=== PATIENT | female | born 1980 ===

== ENCOUNTER → 2022-03-15 14:25 | Outpatient (CLI) | payer OTHER, SELFPAY ==
--- NOTE | 2022-03-16 08:31 | DIET.CONS ---
Dietary Consultation Note Visit on 03/15/22 Assessment: 41y F attending [address] consultation for chronic abdominal pain. Pt has pmhx depression, PTSD, and active bulimia. Pt reports current symptoms began in 2017 as diffuse, aching, 3-4/10 pain in upper abdomen, mostly right sided which wakes her frequently most nights. Pt has been to several providers to assess source of pain. Consult to GI with EGD showing areas of erosion, took PPI which didn't help. Diagnosed with congestive pelvic syndrome, possible endometriosis by BRAND MARKETING COORDINATOR, has hormonal implant x5mo without relief of sx. PCM recommended low fodmap diet, however pt not given directions on how to follow elimination diet so wasn't able to follow this advice. Pt endorses significant constipation which is worse with intake beans and gluten. Pt taking 300mg magnesium citrate daily to achieve one BM daily. Pt does endorse difficulty with hydration status. Pt taking variety of medications for mood: trintellix, prazosin, topiramate, hydroxyzine. Has some morning nausea with trintellix but feels stable on this med so wants to continue taking it, actively seeing therapist. Pt had gained significant weight with some medications, up to 154# which along with work and home life stress intensified her eating disorder with binge/purge as stress coping mechanism. Pts recently lost 45# on the ketogenic diet so pt has been exploring this as a weight loss option to try lose weight gained from medication side effects, pt feels some jealously that he can eat hamburger and delgado and lose so much weight. Pt active [employer], the stress of her job as well as living in a different state than her and two children for 4 years and hx being coxswain on crew team all aggravating factors for eating disorder. Pt identifies stress, shame, depression, overly hungry state, and a feeling of being over full as triggers to purging behaviors. Pt had been purging after each meal but currently only participates in these behaviors twice per week. Pt had not used diuretics or laxatives until starting mag citrate by PCM. Pt perseverates on full stomach until she purges, feels relieved, then feels intense shame for the behaviors. Pt secretive in these habits often looking for isolated bathrooms so no one hears her purge at work or at home. Pt desires healthy relationship with food, sharing family meals around a table, and a better understanding on long standing abd pain to hopefully resolve sx. Ht: 5'1 Wt: 129# BMI: 24.4 UBW: 118# up to 154# RD Impression: Pt interested in assessing possible nutrition related causes of chronic abdominal pain through nutrition assessment and trial of low FODMAP diet with thorough instruction. Pt desires to work through disordered eating behaviors to develop healthy relationship with food and an enriching family food routine. Pt is at action stage of change with both areas. Pt seeing therapist, on appropriate medications, and expresses motivation in the process. Plan is to trial low FODMAP diet x4 weeks followed by systematic reintroduction of foods to identify any food triggers for abd px and create the most food variety possible to avoid restrictive diet. Concerns with pt following ketogenic diet r/t disordered eating, low fiber content with hx constipation. In addition to identifying possible food triggers, we will work to optimize bowel patterns through attaining ideal fiber intake and fluid intake and improved relationship to food. Pt has never had colonoscopy which seems indicated to rule out endometriosis within GI system and to identify other manifestations of chronic constipation such as diverticulosis, internal hemorrhoids, etc. Nutrition Diagnosis: 1. chronic abdominal pain r/t unknown causes aeb pt with 5y near constant diffuse 3-4/10 upper abd pain mostly on right which wakes her at night. 2. disordered eating r/t undesirable coping mechanism for stress aeb pt with bulimia purging twice weekly, sometimes more, pt with dx depression and PTSD, pt reports purging to relieve work and life stress. Interventions: 1. Recommend diagnostic colonoscopy as pain pt describes is within anatomical region of large intestine, pt has never had colonoscopy, endometriosis in differential per medical team which can manifest in GI tissues, pt with chronic constipation. 2. Supportive counseling on disordered eating, helping pt to identify and question long held food rules and beauty standards. 3. Introduced pt to intuitive eating tool the hunger scale. Pt to avoid getting hungry to a 1-2 or full to a 9-10 as these regions often trigger intense desire to binge/purge in susceptible individuals. Pt will work with scale to help regulate meal timing and volume. 4. Educated pt on low FODMAP diet protocol with supportive handouts and directions including meal ideas and shopping lists. Plan for pt to follow x4w then start reintroducing one food at a time q3d to assess for tolerance. Monitoring/Evaluations: f/u in 2w to continue supportive counseling and nutrition education. Electronically Signed by: Nicolasa Green 03/15/22 17:31 Clinical Dietitian [address] [address]
== END ==
PROVIDERS: Visit Provider Student in an Organized Health Care Education/Training Program
DX: G89.29 Other chronic pain (principal); R10.9 Unspecified abdominal pain; F50.2 Bulimia nervosa; Z71.3 Dietary counseling and surveillance; Z68.24 Body mass index [BMI] 24.0-24.9, adult
CPT/HCPCS: 97802

== ENCOUNTER → 2022-03-28 13:55 | Outpatient (CLI) | payer OTHER, SELFPAY ==
--- NOTE | 2022-03-29 14:24 | DIET.OUTPTC ---
Dietary Outpatient Consultation Note Consultation Date: 03/29/2022 41[address] attending RD f/u for unspecified abdominal pain and bulimia. Pt reports B+ grade of herself regarding following low FODMAP diet, no reported improvements in abdominal pain yet. Area pt pointing to for pain in line with transverse colon. Pt with chronic constipation and magnesium citrate use. Pt states not uncommon to have rabbit pellet like BMs, endorses not being very good about liquid consumption, tries to drink [place] fizzy water and miso soup. Pt has had a few purges since last visit, but much fewer than prior to our meetings. Pt using hunger scale and finding it quite useful in avoiding being very hungry or getting overfilled, both sensations spur binge/purge cycles. Pt had one occasion she thought she was a 4, however, once she saw menu she was 3 then when food came she very quickly consumed entire plate along with items off of her children's plates. She spent 4h perseveration on purging but did not. Pt ended up purging on one occasion she quickly ate 4 pieces of pizza. Pt reports when this happens she almost goes outside of her body during the eating phase and gets much relief out of removing the food from her stomach later even though she does feel ashamed. 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 Pt desires to change this habit. Feels she understands logically, but somewhere deep inside she feels this habit works to relieve stress and keep her at controlled weight. Pt moving down to 10mg Trintillex medication as it causes her moderate level nausea most of the day with several occasions of spontaneous emesis over the past 2w. Pt states this not helpful for her abd px nor bulimia. Recc pt request zofran Rx from PCM to help with nausea, literature states can be helpful if taken 30min prior to meds. Pt meeting c DIGITAL COMPOSER regarding potential of endometriosis dx, has PCM meeting on Apr 04 to request GI consult for colonoscopy. Nutrition Diagnosis: 1. chronic abdominal pain r/t unknown causes aeb pt with 5y near constant diffuse 3-4/10 upper abd pain mostly on right which wakes her at night. 2. disordered eating r/t undesirable coping mechanism for stress aeb pt with bulimia purging twice weekly, sometimes more, pt with dx depression and PTSD, pt reports purging to relieve work and life stress. Interventions: 1. Reinforced pts good compliance with low FODMAP diet to test for food triggers to current GI sx. Pt will continue to follow for 2 more weeks to test for efficacy. 2. Reinforced pts good mindfulness around hunger and fullness since last session and starting to understand binge/purge triggers. Reiterated it takes time to substitute alternate coping mechanisms for stress. Pt will work on staying mindful while eating, especially if finding herself in a binge situation. Pt to more closely analyze her relationship to hunger as she may be misidentifying her hunger as a 4 when it actually is stronger. Goals include increased mindfulness and flexibility around food, adequate nutrition intake and meal timing, joyful meals with family, constructive coping mechanisms, reevaluating food/body image rules, identifying source of abd px and treating sx. f/u in 1w to continue supportive counseling and nutrition education. Electronically Signed by: Nicolasa Green 03/28/22 14:24 Clinical [address] [address]
== END ==
PROVIDERS: Referring Provider Student in an Organized Health Care Education/Training Program; Visit Provider Student in an Organized Health Care Education/Training Program
DX: F50.2 Bulimia nervosa (principal); R10.9 Unspecified abdominal pain; Z71.3 Dietary counseling and surveillance
CPT/HCPCS: 97803

== ENCOUNTER → 2022-04-04 13:23 | Outpatient (CLI) | payer OTHER, SELFPAY ==
--- NOTE | 2022-04-04 13:26 | DIET.OUTPTC ---
Dietary Outpatient Consultation Note Consultation Date: 04/04/2022 41[address] F attending RD f/u for abdominal pain and disordered eating. Pt continuing low FODMAP diet which has not decreased her abd pain, however, pt has not been taking magnesium for bowel regimen and is having nearly regular stools daily. Pt starting reintroduction phase of diet. Instructed pt on making list of 10 foods and reintroducing one every three days ensuring she eats full serving of each during that time to assess for tolerance. Pt will start with cottage cheese. Pt using mindful eating techniques which she states is helping with her disordered eating. Pt finding she easily overlooks her hunger when she gets busy or stressed which leads to very fast eating, poor food choices, and overeating which often causes desire to purge and self-shaming. Pt had good day Sunday food er[place]. Was in [place] with family shopping. She had coffee for breakfast, chicken lettuce wrap for lunch at 11:30am, smoothie at 2pm and felt good energy with no desire to purge. Pt then got busy readying her kids for school so missed dinner and did not want to eat past 9pm. Pt expressed plan for times like this: pt will have deli salad in fridge or [employer] entree in freezer for quick meal. Pt starting new telework job tomorrow. Is interested in support around stable eating pattern once she gets an understanding of job duties. Reinforced pts good efforts at mindful eating and getting to the reintroduction phase of FODMAPs. Pt has laprascopic exploration for endometriosis scheduled in April and referral to GI for colonoscopy date TBD. BELLO f/u in 2w to continue supportive eating counseling and guidance with FODMAP reintroduction. Electronically Signed by: Nicolasa Green 04/04/22 13:26 Clinical Dietitian [id number] [place] [address]
== END ==
PROVIDERS: Visit Provider Student in an Organized Health Care Education/Training Program
DX: F50.9 Eating disorder, unspecified (principal); R10.9 Unspecified abdominal pain; Z71.3 Dietary counseling and surveillance
CPT/HCPCS: 97803

== ENCOUNTER → 2022-04-20 16:20 | Outpatient (CLI) | payer OTHER, SELFPAY ==
--- NOTE | 2022-04-20 17:51 | DIET.OUTPTC ---
Dietary Outpatient Consultation Note Consultation Date: 04/20/20[address] 41[address] RD f/u for help with abd pain and disordered eating. Pt reintroduced cottage cheese to diet, noticing she is waking with anxiety from 1-3am. Pt unclear if this is food related or related to stress of acute life changes. Pt will remove cottage cheese from diet for now and let life settle in April before reintroducing again. Pt found potato chips and gluten as triggers for desire to purge. Pt will keep these out of diet for now until officially retires in 8d. Pt shares her kids are picky eaters which causes stress at meal times. Pt has goal of sharing joyful meals c family but unclear about what everyone can share at the table. Pt not noticing improvement in abd sx, however, pt had 2 BMs today and 1 BM most days without use of magnesium citrate, pt focusing on hydration. Pt has had some binge/purge since last visit but under considerable stress right now. Pt continues to lose sight of hunger when stressed or busy. Interventions: 1. Agree c pt to keep diet stable until snf and insurance change. 2. [facility] pt enroll her daughter in S[employer] Feeding Therapy at with Nadeem Crowder to help with picky eating. Pts son may benefit from seeing his sister being brave with food. Change in this aspect of family meals will benefit pt and her goal of family meals. 3. Reinforced pts focus on hydration with improved bowel fxn despite stubborn abd px. 4. Reinforced pt has strong neural connection with binge/purge and stress relief, will not dissapear overnight. Reinforced pts mindfulness and processing of instances she participates in these behaviors. F/u in 3w to continue supportive nutrition therapy. Increase awareness of hunger identification when busy or stressed to support stable eating habits. Electronically Signed by: Nicolasa Green 04/20/22 17:51 Clinical Dietitian [address] [place] [address]
== END ==
PROVIDERS: Visit Provider Student in an Organized Health Care Education/Training Program
DX: R10.9 Unspecified abdominal pain (principal); F50.9 Eating disorder, unspecified; Z71.3 Dietary counseling and surveillance
CPT/HCPCS: 97803

== ENCOUNTER → 2023-09-14 07:42 | Outpatient (CLI) | payer OTHER, SELFPAY ==
--- NOTE | 2023-09-14 07:43 | DI.MG.S_ITS ---
BILATERAL DIGITAL SCREENING MAMMOGRAM 3D/2D WITH CAD: 09/14/2023 CLINICAL: Baseline exam. Routine screening. No prior exams were available for comparison. Both breasts are heterogeneously dense, which may obscure small masses (category c / 51-75% glandular tissue). Current study was also evaluated with a Computer Aided Detection (CAD) system. There is a 1.9 cm oval equal density focal asymmetry with an obscured margin in the left breast at 3 o'clock middle depth. No other significant masses, calcifications, or other findings are seen in either breast. IMPRESSION: INCOMPLETE: NEEDS ADDITIONAL IMAGING EVALUATION The 1.9 cm oval equal density focal asymmetry in the left breast resembles a cyst and is indeterminate. Additional views with possible ultrasound are recommended. Based on the Tyrer Cuzick model (a risk assessment model) the patient's lifetime risk is 14.3% and her 10 year risk is 2.5%. According to the ACR, ACS, and NCCN guidelines, an annual breast MRI exam along with mammogram is recommended if the patient's lifetime risk is 20% or greater. This exam was interpreted at Station ID: [id number]. NOTE: For mammograms, a report in lay terms will be sent to the patient. Approximately 15% of breast malignancies will not be visualized mammographically. In the management of a palpable breast mass, a negative mammogram must not discourage biopsy of a clinically suspicious lesion. Electronically Signed By: Marty Torres M.D. aty/:09/14/2023 10:01:33 letter sent: Additional Imaging Needed ACR BI-RADS Category 0: Incomplete [id number]
== END ==
LOC: MAMMO 07:42
PROVIDERS: PCP Family Medicine; Referring Provider Family Medicine; Visit Provider Family Medicine
DX: Z12.31 Encounter for screening mammogram for malignant neoplasm of breast (principal); R92.333 Mammographic heterogeneous density, bilateral breasts
CPT/HCPCS: 77063; 77067

== ENCOUNTER → 2023-10-12 09:26 | Outpatient (CLI) | payer OTHER, SELFPAY ==
--- NOTE | 2023-10-12 | DI.MG.S_ITS ---
UNILATERAL LEFT DIGITAL DIAGNOSTIC MAMMOGRAM 3D/2D WITH ADDITIONAL VIEWS: 10/12/2023 CLINICAL: Additional evaluation requested from prior study. Comparison is made to exam dated: 09/14/2023 mammogram - [facility]. The left breast is heterogeneously dense, which may obscure small masses (category c / 51-75% glandular tissue). There is a 1.9 cm oval focal asymmetry in the left breast at 3 o'clock middle depth. This is seen in additional views. No other significant masses or calcifications are seen in the breast. IMPRESSION: INCOMPLETE: NEEDS ADDITIONAL IMAGING EVALUATION The 1.9 cm oval focal asymmetry in the left breast resembles a cyst and is indeterminate. A targeted ultrasound of the left breast is recommended and will be performed immediately following this exam. Based on the Tyrer Cuzick model (a risk assessment model) the patient's lifetime risk is 14.3% and her 10 year risk is 2.6%. According to the ACR, ACS, and NCCN guidelines, an annual breast MRI exam along with mammogram is recommended if the patient's lifetime risk is 20% or greater. This exam was interpreted at Station ID: [id number]. NOTE: For mammograms, a report in lay terms will be sent to the patient. Approximately 15% of breast malignancies will not be visualized mammographically. In the management of a palpable breast mass, a negative mammogram must not discourage biopsy of a clinically suspicious lesion. Electronically Signed By: Dominique Thompson M.D. lk/:10/12/2023 09:57:03 ACR BI-RADS Category 0: Incomplete [id number]
--- NOTE | 2023-10-12 09:28 | DI.US.S_ITS ---
LIMITED ULTRASOUND OF LEFT BREAST: 10/12/2023 CLINICAL: Patient returns today to evaluate a focal asymmetry in the left breast. Comparison is made to exams dated: 10/12/2023 mammogram and 09/14/2023 mammogram - [facility]. Color flow and real-time ultrasound of the left breast 3 o'clock region were performed on the areas of interest. Ley scale images of the real-time examination were reviewed. There is a 2 cm x 1.8 cm x 3 cm simple cyst in the left breast at 3 o'clock middle depth. This simple cyst is anechoic. This correlates with mammography findings. Color flow imaging demonstrates that there is no vascularity present. IMPRESSION: BENIGN There is no sonographic evidence of malignancy. The 2 cm x 1.8 cm x 3 cm simple cyst in the left breast is benign. Return to annual mammogram screening schedule is recommended. This exam was interpreted at Station ID: [id number]. Electronically Signed By: Dominique Thompson M.D. lk/:10/12/2023 10:31:12 letter sent: Normal Exam Ultrasound BI-RADS: 2 Benign
== END ==
LOC: MAMMO 09:27
PROVIDERS: PCP Family Medicine; Referring Provider Family Medicine; Visit Provider Family Medicine
DX: R92.8 Other abnormal and inconclusive findings on diagnostic imaging of breast (principal); R92.332 Mammographic heterogeneous density, left breast; N60.02 Solitary cyst of left breast
CPT/HCPCS: 76642; 77065; G0279

== ENCOUNTER → 2024-03-13 16:00 | Outpatient (CLI) | payer OTHER, SELFPAY ==
--- NOTE | 2024-03-13 16:02 | DI.MRI.S_ITS ---
PROCEDURE: MR SHOULDER RT WO CON INDICATIONS: IMPINGEMENT SYNDROM OF RT SHOULDER TECHNIQUE: Noncontrast oblique coronal T2 fast spin echo with fat saturation, oblique sagittal T1 spin echo and T2 fast spin echo with fat saturation, axial T1 spin echo and T2 fast spin echo with fat saturation through the shoulder. COMPARISON: None. FINDINGS: Image quality: Excellent. Rotator cuff: The supraspinatus and the infraspinatus are unremarkable. The teres minor and the subscapularis are unremarkable. No muscle edema or fatty atrophy. Bones and bursae: No significant degenerative changes of the acromioclavicular joint. Type 2 acromion. No os acromiale. Trace subacromial/subdeltoid bursitis. Small subchondral cystic changes in the posterior aspect of the greater tuberosity, reactive. No marrow edema. No acute fracture. No focal chondral defects of the glenohumeral articulation. Capsule and soft tissues: Tear of the anterior inferior labrum, with 4 mm paralabral cyst. The extra-articular biceps tendon is unremarkable. The intra-articular biceps tendon is unremarkable as well. No significant glenohumeral effusion. Trace subcoracoid bursitis. No intra-articular body. IMPRESSION: 1. Tear of the anterior inferior labrum with 4 mm paralabral cyst. Dictated by: Kenna Blanca M.D. on 03/14/2024 at 13:53 Approved by: Kenna Blanca M.D. on 03/14/2024 at 13:59
== END ==
PROVIDERS: PCP Family Medicine; Referring Provider Chiropractor; Visit Provider Chiropractor
DX: M75.41 Impingement syndrome of right shoulder (principal); S43.431A Superior glenoid labrum lesion of right shoulder, initial encounter
CPT/HCPCS: 73221

== ENCOUNTER → 2024-10-24 07:43 | Outpatient (CLI) | payer OTHER, SELFPAY ==
--- NOTE | 2024-10-24 07:45 | DI.MG.S_ITS ---
MM screening mammo BI: 10/24/2024. BI-RADS: 0 CLINICAL: 44-year old female for bilateral screening mammogram. Tyrer-Cuzick lifetime risk of 9.7%. No personal or first-degree family history of breast cancer. PRIOR EXAMS 10/12/2023, 09/14/2023. MAMMOGRAPHY TECHNIQUE: 2D and 3D (tomosynthesis) digital mammographic views obtained, with additional images as needed for full coverage. Current study was also evaluated with a Computer Aided Detection (CAD) system. DENSITY C. The breasts are heterogeneously dense, which may obscure small masses. MAMMOGRAPHY FINDINGS Right: No suspicious mass, asymmetry, microcalcification, or other abnormality seen. Left: Upper Outer Quadrant, Middle depth: Mass needing additional imaging evaluation. This mass has increased in size compared to the previous. IMPRESSION: Right * No evidence of malignancy. Left (Mass): Upper Outer Quadrant, Middle depth * Incomplete - mass needing additional imaging evaluation. RECOMMENDATIONS Left: Upper Outer Quadrant, Middle depth * Further evaluation with diagnostic mammography and diagnostic ultrasound. Ultrasound to be performed only if needed. OVERALL ASSESSMENT CATEGORY BI-RADS-0: Incomplete - Need Additional Imaging Evaluation. ELECTRONICALLY SIGNED: Sue Mcmahon M.D. on 10/24/2024 at 10:12:51 PM PT Interpreting Station ID: [id number]
== END ==
LOC: MAMMO 07:44
PROVIDERS: PCP Family Medicine; Referring Provider Family Medicine; Visit Provider Family Medicine
DX: Z12.31 Encounter for screening mammogram for malignant neoplasm of breast (principal); R92.333 Mammographic heterogeneous density, bilateral breasts
CPT/HCPCS: 77063; 77067

== ENCOUNTER → 2024-11-27 08:35 | Outpatient (CLI) | payer OTHER, SELFPAY ==
--- NOTE | 2024-11-27 08:35 | DI.MG.S_ITS ---
MM diagnostic mammo unilat LT, US breast LT limited: 11/27/2024 BI-RADS: 2 CLINICAL: 44-year old female for left diagnostic mammogram and left diagnostic breast ultrasound that is a recall from screening on 10/24/2024. Tyrer-Cuzick lifetime risk of 9.7%. No personal or first-degree family history of breast cancer. PRIOR EXAMS Mammogram(s): 10/24/2024. Three Other Exams on 10/12/2023, 09/14/2023. MAMMOGRAPHY TECHNIQUE: 2D and 3D (tomosynthesis) digital mammographic views obtained, with additional images as needed for full coverage. Current study was also evaluated with a Computer Aided Detection (CAD) system. ULTRASOUND TECHNIQUE Real-time engle scale and color doppler imaging of the area of clinical interest was performed with image documentation. TARGETED Left Breast Ultrasound: Real-time ultrasound exam was performed focused to area of clinical and/or imaging concern. DENSITY Left: C. The breasts are heterogeneously dense, which may obscure small masses. MAMMOGRAPHY FINDINGS Left (finding-1): Upper Outer Quadrant: This finding persists with additional views. It appears to be a combination of two separate asymmetries. Both demonstrate smooth margins. ULTRASOUND FINDINGS Left (finding-1): Outer at 3:00, 3 cm from nipple, measuring 2.3 x 2.1 x 1.4 cm: Correlating with findings on mammogram there is a simple anechoic cyst showing posterior acoustic enhancement. Doppler shows no vascularity. Left: Outer at 2:30, 3 cm from nipple, measuring 3.3 x 2.4 x 1 cm: Correlating with findings on mammogram there is a simple anechoic cyst showing posterior acoustic enhancement. Doppler shows no vascularity. IMPRESSION: Left * No evidence of malignancy with benign findings. RECOMMENDATIONS Bilateral * Annual screening mammography in one year. COMMENTS: Findings and recommendations were conveyed to the patient during today's evaluation. OVERALL ASSESSMENT CATEGORY BI-RADS-2: Benign. The [employer] recommends annual screening mammography beginning at age 40 for women with average risk of breast cancer. ELECTRONICALLY SIGNED: Nasrin Espinoza M.D. on 11/27/2024 at 10:20:10 AM PT Interpreting Station ID: [id number]
== END ==
PROVIDERS: PCP Family Medicine; Referring Provider Family Medicine; Visit Provider Family Medicine
DX: R92.8 Other abnormal and inconclusive findings on diagnostic imaging of breast (principal); N60.02 Solitary cyst of left breast; R92.332 Mammographic heterogeneous density, left breast
CPT/HCPCS: 76642; 77065; G0279